=== PATIENT | male | born 1965 | race African-American/Black ===

== ENCOUNTER 2024-01-11 10:03 | Emergency (ER) | payer OTHER ==
[2024-01-11 10:12] VITALS: BMI 31.8
[2024-01-11 12:11] LABS: BASO % 0.5 % (0-2.0); EOS % 1.7 % (0-4.5); HEMATOCRIT 43.8 % (35.4-49); HEMOGLOBIN 14.2 GM/dL (11.7-16.9); LYMPH % 34.2 % (8-40); MCHC 32.5 g/dl (32.0-35.9); MEAN CELL VOLUME 83.3 fl (80-96); MEAN PLT VOLUME 8.4 fl (7.5-11.1); MONO % 5.2 % (3.8-10.2); NEUT % 58.4 % (42.8-82.8); PLATELET COUNT 217 10^3/uL (134-434); RBC 5.25 M/mm3 (4.00-5.60); RDW 14.7 % (11.9-15.9); WHITE BLOOD COUNT 7.1 K/mm3 (4.0-10.0)
[2024-01-11 13:15] LABS: POTASSIUM 4.7 mmol/L (3.5-5.1)
[2024-01-11 13:20] LABS: ALBUMIN 3.9 g/dl (3.4-5.0); BLOOD UREA NITROGEN 8.6 mg/dL (7-18)
[2024-01-11 13:23] LABS: CREATININE 1.1 mg/dL (0.55-1.3)
[2024-01-11 13:25] LABS: BILIRUBIN,TOTAL 0.9 mg/dL (0.2-1); TOT PROT 6.9 g/dl (6.4-8.2)
[2024-01-11 16:29] VITALS: BP 129/87; PULSE 87; RESP 20; TEMP 98.4
== END 2024-01-11 18:33 | disposition home or self-care (01) ==
LOC: JER 10:03
DX: M54.2 Cervicalgia (principal); R09.89 Other specified symptoms and signs involving the circulatory and respiratory systems; R22.1 Localized swelling, mass and lump, neck
CPT/HCPCS: 36415; 70491-TC; 80053; 85025; 99285-25; Q9967

== ENCOUNTER 2024-05-20 06:44 | Day surgery (SDC) | payer OTHER ==
[2024-05-19 15:59] VITALS: BMI 31.4
[2024-05-20] MEDS ORDERED: BUPIVACAINE HCL/PF 0.5% (5MG/ML) 10 ML VIAL ONE (07:48)
[2024-05-20] MEDS ORDERED: BUPIVACAINE HCL/PF 0.25% (2.5MG/ML) 10 ML VIAL ONE (07:48)
[2024-05-20] MEDS ORDERED: BUPIVACAINE HCL/PF 0.75% 10 ML VIAL ONE (07:48)
[2024-05-20] MEDS ORDERED: DEXAMETHASONE SOD PHOSPHATE 10 MG/1 ML VIAL ONE (07:49)
[2024-05-20] MEDS ORDERED: ACETAMINOPHEN 500 MG TABLET (FP) PO PRN (08:59)
[2024-05-20] MEDS: BUPIVACAINE HCL/PF 0.5% (5MG/ML) 10 ML VIAL IJ ONE (12:03)
[2024-05-20 12:28] VITALS: BP 135/82; PULSE 78; RESP 16; TEMP 98.2
== END 2024-05-20 12:48 | disposition home or self-care (01) ==
LOC: JASU-SURG 06:44
PROVIDERS: ATTEND Pain Medicine Pain Medicine
PROC: 3E0T3BZ Introduction of Anesthetic Agent into Peripheral Nerves and Plexi, Percutaneous Approach (ICD-10-PCS; principal; 2024-05-20 11:45)
DX: M47.812 Spondylosis without myelopathy or radiculopathy, cervical region (principal)
CPT/HCPCS: 76000-TC-FY; J1100

== ENCOUNTER 2024-06-10 06:57 | Day surgery (SDC) | payer OTHER ==
[2024-06-08 10:53] VITALS: BMI 31.4
[2024-06-10] MEDS: IOHEXOL 180 MG/1 ML ML IJ ONE
[2024-06-10] MEDS: LIDOCAINE HCL 1%, 10 MG/ML (20ML VIAL) NR ONE
[2024-06-10] MEDS: LIDOCAINE HCL 1% PRESERVATIVE FREE - 30ML VIAL IJ ONE
[2024-06-10 08:33] VITALS: RESP 16
[2024-06-10] MEDS ORDERED: ACETAMINOPHEN 500 MG TABLET (FP) PO PRN (09:14)
[2024-06-10] MEDS: BUPIVACAINE HCL/PF 0.5% (5MG/ML) 10 ML VIAL IJ ONE ×2 (09:55)
[2024-06-10 10:26] VITALS: BP 146/84; PULSE 77; TEMP 98.6
== END 2024-06-10 10:45 | disposition home or self-care (01) ==
LOC: JASU-SURG 06:57
PROVIDERS: ATTEND Pain Medicine Pain Medicine
PROC: 3E0T33Z Introduction of Anti-inflammatory into Peripheral Nerves and Plexi, Percutaneous Approach (ICD-10-PCS; 2024-06-10)
PROC: 3E0T3BZ Introduction of Anesthetic Agent into Peripheral Nerves and Plexi, Percutaneous Approach (ICD-10-PCS; principal; 2024-06-10 09:15)
DX: M54.12 Radiculopathy, cervical region (principal)
CPT/HCPCS: 76000-TC-FY